=== PATIENT | female | born 1995 | race Caucasian/White ===

== ENCOUNTER 2018-06-24 20:30 | Observation (INO) | payer BC ==
--- NOTE | 2018-06-24 20:43 | EDPHY ---
H & P Stated Complaint: SENT FROM [facility] [place] ABD PAIN N,V,D, 24 HRS. RLQ PAIN Time Seen by Provider: 06/24/18 20:42 HPI/ROS: CHIEF COMPLAINT: Abdominal pain, vomiting and diarrhea HISTORY OF PRESENT ILLNESS: The patient presents the ED with a 1 day history of generalized abdominal pain, vomiting and diarrhea. The patient took Zofran earlier today without improvement. She went to urgent care received IV fluid rehydration for the past 3 hr. She continued to have ongoing abdominal pain which appear to be more localized to the right lower quadrant and was referred to the ED for further evaluation. The patient denies any history of dysuria, fever or sore throat. She denies prior history of abdominal surgery. She does have a prior history of a hip surgery. She is on levothyroxine. REVIEW OF SYSTEMS: A comprehensive 10 point review of systems is otherwise negative aside from elements mentioned in the history of present illness. Source: Patient Exam Limitations: No limitations - Personal History LMP (Females 10-55): 15-21 Days Ago Current Tetanus/Diphtheria Vaccine: Yes Current Tetanus Diphtheria and Acellular Pertussis (TDAP): Yes - Medical/Surgical History Hx Asthma: No Hx Chronic Respiratory Disease: No Hx Diabetes: No Hx Cardiac Disease: No Hx Renal Disease: No Hx Cirrhosis: No Hx Alcoholism: No Hx HIV/AIDS: No Hx Splenectomy or Spleen Trauma: No Other PMH: HIP SURGERY , CHI WITH VISION ISSUES, HYPOTHYROID - Social History Smoking Status: Never smoked - Physical Exam Exam: General Appearance: Alert, no distress Eyes: Pupils equal and round no pallor or injection ENT, Mouth: Mucous membranes moist Respiratory: There are no retractions, lungs are clear to auscultation Cardiovascular: Regular rate and rhythm Gastrointestinal: Generalized abdominal tenderness, greatest in the right lower quadrant, no peritoneal signs, normal bowel sounds Neurological: 5/5 strength all 4 extremities Skin: Warm and dry, no rashes Musculoskeletal: Neck is supple nontender Extremities: symmetrical, full range of motion Constitutional: Initial Vital Signs Temperature (C) 37.4 C 06/24/18 20:32 Heart Rate 95 06/24/18 20:32 Respiratory Rate 18 06/24/18 20:32 Blood Pressure 121/66 H 06/24/18 20:32 O2 Sat (%) 99 06/24/18 20:32 O2 Delivery Mode Room Air Allergies/Adverse Reactions: No Known Allergies Allergy (Unverified 06/24/18 20:36) Home Medications: Medication Instructions Recorded Cetirizine [ZyrTEC 10 mg (*)] 10 mg PO DAILY 06/24/18 Levothyroxine [Synthroid 25 mcg 25 mcg PO DAILY06 06/24/18 (*)] Medical Decision Making - Diagnostics Imaging Results: Imaging Impressions Abdomen CT 06/24/18 21:40 Impression: 1. Acute retrocecal appendicitis predominantly involving the tip of the appendix , where marked focal inflammatory changes suggests possible microperforation. The tip of the appendix is located directly adjacent to the inferior margin of the liver. Results called to Abdullahi Glez at 10:10 PM ED Course/Re-evaluation: The patient had an IV established. The patient was noted to have a significant leukocytosis. She has the somewhat unusual presentation with vomiting and diarrhea but fairly significant abdominal tenderness which is localized to the right mid quadrant. Given the amount of GI symptoms I did perform a CT scan of the abdomen pelvis which confirms a diagnosis of a retrocecal appendicitis. The patient received 2 g of IV cefoxitin in the ED. She received Toradol for pain management. Consultation was made with Dr. Alfaro from General surgery who will admit the patient for appendectomy this evening. I re-evaluated the patient at 10:10 p.m.. Differential Diagnosis: Differential diagnosis considered includes gastroenteritis, mesenteric adenitis , ectopic , appendicitis - Data Points Laboratory Results: Laboratory Results 06/24/18 20:58 06/24/18 20:58 06/24/18 06/24/18 06/24/18 20:58 20:58 20:58 WBC 20.24 10^3/uL H 10^3/uL (3.80-9.50) RBC 4.98 10^6/uL 10^6/uL (4.18-5.33) Hgb 13.8 g/dL g/dL (12.6-16.3) Hct 41.6 % % (38.0-47.0) MCV 83.5 fL fL (81.5-99.8) MCH 27.7 pg L pg (27.9-34.1) MCHC 33.2 g/dL g/dL (32.4-36.7) RDW 12.4 % % (11.5-15.2) Plt Count 385 10^3/uL 10^3/uL (150-400) MPV 9.3 fL fL (8.7-11.7) Neut % (Auto) 82.6 % H % (39.3-74.2) Lymph % (Auto) 9.2 % L % (15.0-45.0) [place] % (Auto) 7.6 % % (4.5-13.0) Eos % (Auto) 0.0 % L % (0.6-7.6) Baso % (Auto) 0.3 % % (0.3-1.7) Nucleat RBC Rel Count 0.0 % % (0.0-0.2) Absolute Neuts (auto) 16.72 10^3/uL H 10^3/uL (1.70-6.50) Absolute Lymphs (auto) 1.86 10^3/uL 10^3/uL (1.00-3.00) Absolute Monos (auto) 1.54 10^3/uL H 10^3/uL (0.30-0.80) Absolute Eos (auto) 0.00 10^3/uL L 10^3/uL (0.03-0.40) Absolute Basos (auto) 0.06 10^3/uL 10^3/uL (0.02-0.10) Absolute Nucleated RBC 0.00 10^3/uL 10^3/uL (0-0.01) Immature Gran % 0.3 % % (0.0-1.1) Immature Gran # 0.06 10^3/uL 10^3/uL (0.00-0.10) RBC/WBC/PLT Morphology TNP Platelet Estimate TNP Sodium 139 mEq/L mEq/L (135-145) Potassium 3.7 mEq/L mEq/L (3.3-5.0) Chloride 107 mEq/L mEq/L (97-110) Carbon Dioxide 21 mEq/l L mEq/l (22-31) Anion Gap 11 mEq/L mEq/L (6-14) BUN 4 mg/dL L mg/dL (7-23) Creatinine 0.6 mg/dL mg/dL (0.6-1.0) Estimated GFR > 60 Glucose 101 mg/dL H mg/dL (70-100) Calcium 9.4 mg/dL mg/dL (8.5-10.4) Total Bilirubin 0.8 mg/dL mg/dL (0.1-1.4) Conjugated Bilirubin 0.2 mg/dL mg/dL (0.0-0.5) Unconjugated Bilirubin 0.6 mg/dL mg/dL (0.0-1.1) AST 25 IU/L IU/L (14-46) ALT 21 IU/L IU/L (9-52) Alkaline Phosphatase 67 IU/L IU/L (38-126) Total Protein 8.0 g/dL g/dL (6.3-8.2) Albumin 4.7 g/dL g/dL (3.5-5.0) Lipase 120 IU/L IU/L (23-300) Beta HCG, Qual NEGATIVE Medications Given: Discontinued Medications Ketorolac Tromethamine (Toradol) 15 mg IVP EDNOW ONE Stop: 06/24/18 20:54 Last Admin: 06/24/18 21:09 Dose: 15 mg Departure - Departure Disposition: [facility] Inpatient Acute Clinical Impression: Acute appendicitis Condition: Good Referrals: Bela Manjarrez MD [Primary Care Provider] - As per Instructions
[2018-06-24] MEDS ORDERED: KETOROLAC 15 MG/1 ML SDV IVP ONE (20:53)
[2018-06-24 21:10] LABS: PLATELET COUNT 385 10^3/uL (150-400)
[2018-06-24] MEDS ORDERED: IOPAMIDOL (ISOVUE-300) 100 ML BTL ONE (21:47)
[2018-06-24] MEDS ORDERED: cefOXitin SODIUM 2 GM in NS 100 ML IV ONE (22:07)
--- NOTE | 2018-06-24 22:41 | PDGENHP ---
History and Physical - Chief Complaint abdominal pain - History of Present Illness otherwise healthy 23yo female who presents with abdominal pain since 0300. Awoke this AM had some vague abdominal discomfort, she thought she needed to have a BM and took some tea to help. Had BM x2, still had pain which progressed throughout the day. THis evening, began to relocate to the RLQ. She has had nausea, vomiting and diarrhea throughout the day. No fevers or chills. Pain is RLQ, sharp, worse with palpation, better with rest. History Information - Allergies/Home Medication List Allergies/Adverse Reactions: No Known Allergies Allergy (Unverified 06/24/18 20:36) Home Medications: Cetirizine [ZyrTEC 10 mg (*)] 10 mg PO DAILY 06/24/18 [Last Taken Unknown] Levothyroxine [Synthroid 25 mcg (*)] 25 mcg PO DAILY06 06/24/18 [Last Taken Unknown] I have personally reviewed and updated: family history, medical history, social history, surgical history Past Medical History: hypothyroid - Surgical History Additional surgical history: wisdom teeth removal, R hip arthorscopy - Family History Positive for: non-pertinent - Social History Smoking Status: Never smoked 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 Review of Systems Review of Systems: ROS: 10pt was reviewed & negative except for what was stated in HPI & below Physical Exam Physical Exam: Temp Pulse Resp BP Pulse Ox 37.4 C 95 18 121/66 H 99 06/24/18 20:32 06/24/18 20:32 06/24/18 20:32 06/24/18 20:32 06/24/18 20:32 Constitutional: no apparent distress, appears nourished, not in pain Eyes: PERRL, anicteric sclera, EOMI Ears, Nose, Mouth, Throat: moist mucous membranes, hearing normal, ears appear normal, no oral mucosal ulcers Cardiovascular: regular rate and rhythym, no murmur, rub, or gallop, No edema Respiratory: no respiratory distress, no rales or rhonchi, clear to auscultation Gastrointestinal: normoactive bowel sounds, other (TTP in RLQ, worse with deep palpation, no rebound ) Genitourinary: no bladder fullness, no bladder tenderness Skin: warm, normal color, no rashes or abrasions, no fluctuance, no induration, No mottled Musculoskeletal: full muscle strength, no muscle tenderness, normal joint ROM, no joint effusions Psychiatric: interacting appropriately, not anxious, not encephalopathic, thought process linear Lymph, Heme, Immunologic: no cervical LAD, no supraclavicular LAD Lab Data & Imaging Review 06/24/18 20:58 06/24/18 20:58 WBC 20.24 10^3/uL (3.80-9.50) H 06/24/18 20:58 RBC 4.98 10^6/uL (4.18-5.33) 06/24/18 20:58 Hgb 13.8 g/dL (12.6-16.3) 06/24/18 20:58 Hct 41.6 % (38.0-47.0) 06/24/18 20:58 MCV 83.5 fL (81.5-99.8) 06/24/18 20:58 MCH 27.7 pg (27.9-34.1) L 06/24/18 20:58 MCHC 33.2 g/dL (32.4-36.7) 06/24/18 20:58 RDW 12.4 % (11.5-15.2) 06/24/18 20:58 Plt Count 385 10^3/uL (150-400) 06/24/18 20:58 MPV 9.3 fL (8.7-11.7) 06/24/18 20:58 Neut % (Auto) 82.6 % (39.3-74.2) H 06/24/18 20:58 Lymph % (Auto) 9.2 % (15.0-45.0) L 06/24/18 20:58 [place] % (Auto) 7.6 % (4.5-13.0) 06/24/18 20:58 Eos % (Auto) 0.0 % (0.6-7.6) L 06/24/18 20:58 Baso % (Auto) 0.3 % (0.3-1.7) 06/24/18 20:58 Nucleat RBC Rel Count 0.0 % (0.0-0.2) 06/24/18 20:58 Absolute Neuts (auto) 16.72 10^3/uL (1.70-6.50) H 06/24/18 20:58 Absolute Lymphs (auto) 1.86 10^3/uL (1.00-3.00) 06/24/18 20:58 Absolute Monos (auto) 1.54 10^3/uL (0.30-0.80) H 06/24/18 20:58 Absolute Eos (auto) 0.00 10^3/uL (0.03-0.40) L 06/24/18 20:58 Absolute Basos (auto) 0.06 10^3/uL (0.02-0.10) 06/24/18 20:58 Absolute Nucleated RBC 0.00 10^3/uL (0-0.01) 06/24/18 20:58 Immature Gran % 0.3 % (0.0-1.1) 06/24/18 20:58 Immature Gran # 0.06 10^3/uL (0.00-0.10) 06/24/18 20:58 RBC/WBC/PLT Morphology TNP 06/24/18 20:58 Platelet Estimate TNP 06/24/18 20:58 Sodium 139 mEq/L (135-145) 06/24/18 20:58 Potassium 3.7 mEq/L (3.3-5.0) 06/24/18 20:58 Chloride 107 mEq/L (97-110) 06/24/18 20:58 Carbon Dioxide 21 mEq/l (22-31) L 06/24/18 20:58 Anion Gap 11 mEq/L (6-14) 06/24/18 20:58 BUN 4 mg/dL (7-23) L 06/24/18 20:58 Creatinine 0.6 mg/dL (0.6-1.0) 06/24/18 20:58 Estimated GFR > 60 06/24/18 20:58 Glucose 101 mg/dL (70-100) H 06/24/18 20:58 Calcium 9.4 mg/dL (8.5-10.4) 06/24/18 20:58 Total Bilirubin 0.8 mg/dL (0.1-1.4) 06/24/18 20:58 Conjugated Bilirubin 0.2 mg/dL (0.0-0.5) 06/24/18 20:58 Unconjugated Bilirubin 0.6 mg/dL (0.0-1.1) 06/24/18 20:58 AST 25 IU/L (14-46) 06/24/18 20:58 ALT 21 IU/L (9-52) 06/24/18 20:58 Alkaline Phosphatase 67 IU/L (38-126) 06/24/18 20:58 Total Protein 8.0 g/dL (6.3-8.2) 06/24/18 20:58 Albumin 4.7 g/dL (3.5-5.0) 06/24/18 20:58 Lipase 120 IU/L (23-300) 06/24/18 20:58 Beta HCG, Qual NEGATIVE 06/24/18 20:58 Visualized and Interpreted imaging results: Yes Interpretation: CT: acute appendicitis, retrocecal Assessment & Plan Assessment: Acute appendicitis (Acute) Plan: 23yo female with acute appendicitis - IV abx in [facility] ED - to OR for laparoscopic appendectomy. RBA discussed
[2018-06-24] MEDS ORDERED: BUPIVACAINE 0.25% 30 ML SDV ONE (22:46)
[2018-06-24] MEDS ORDERED: EPINEPHrine 1 MG/ML INJ ONE (22:47)
--- NOTE | 2018-06-24 23:21 | POSTANESTH ---
Post Anesthetic Evaluation Cardiovascular Status: Normal, Stable Respiratory Status: Normal, Stable Level of Consciousness/Mental Status: Can Participate in Eval, Moderately Sleepy Pain Control: Adequate, Prn Tx Ordered Nausea/Vomiting Control: Adequate, Prn Tx Ordered Complications Possibly Related to Anesthesia: None Noted
--- NOTE | 2018-06-24 23:23 | PDANEPAE ---
ANE History of Present Illness 23 yo female with acute appendicitis since Monday. 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 - Surgical History Prior Surgeries: hip surgery ANE Review of Systems Review of Systems: - Systems Gastrointestinal: Reports: vomitting, abdominal pain ANE Patient History - Allergies Allergies/Adverse Reactions: No Known Allergies Allergy (Unverified 06/24/18 20:36) - Home Medications Home Medications: Cetirizine [ZyrTEC 10 mg (*)] 10 mg PO DAILY 06/24/18 [Last Taken Unknown] Levothyroxine [Synthroid 25 mcg (*)] 25 mcg PO DAILY06 06/24/18 [Last Taken Unknown] - NPO status NPO Since - Solids (Date): 06/24/18 NPO Since - Solids (Time): 20:00 - Anes Hx Anes Hx: no prior problems - Smoking Hx Smoking Status: Never smoked - Family Anes Hx Family Anes Hx: neg - N/A ANE Labs/Vital Signs - Labs Result Diagrams: 06/24/18 20:58 06/24/18 20:58 - Vital Signs Blood Pressure: 102/58 Heart Rate: 68 Respiratory Rate: 18 O2 Sat (%): 97 Height: 165.1 cm Weight: 74.843 kg ANE Physical Exam - Airway Neck exam: FROM Mallampati Score: Class 2 Mouth exam: normal dental/mouth exam - Pulmonary Pulmonary: clear to auscultation - Cardiovascular Cardiovascular: regular rate and rhythym - ASA Status ASA Status: II, E ANE Anesthesia Plan Anesthesia Plan: general endotracheal anesthesia
[2018-06-24] MEDS ORDERED: LIDOCAINE 2% 2 ML INJ ONE (23:25)
[2018-06-24] MEDS ORDERED: ROCURONIUM 50 MG/5 ML VIAL ONE (23:25)
[2018-06-24] MEDS ORDERED: ONDANSETRON 4 MG/2 ML VIAL ONE (23:25)
[2018-06-24] MEDS ORDERED: fentaNYL 100 MCG/2 ML INJ ONE ×2 (23:25)
[2018-06-24] MEDS ORDERED: PROPOFOL 200 MG/20 ML VIAL ONE (23:25)
[2018-06-24] MEDS ORDERED: SUCCINYLCHOLINE CHLORIDE 200 MG/10 ML SYR IVP ONE (23:25)
[2018-06-24] MEDS ORDERED: DEXAMETHASONE 4 MG/ML VIAL ONE (23:25)
[2018-06-25] MEDS ORDERED: PROMETHAZINE HCL 25 MG/ML INJ IVP PRN (00:09)
[2018-06-25] MEDS ORDERED: NALOXONE HCL 0.4 MG/ML INJ IVP PRN (00:09)
[2018-06-25] MEDS ORDERED: fentaNYL 100 MCG/2 ML INJ IVP PRN (00:09)
[2018-06-25] MEDS ORDERED: LR 500 ML IV PRN (00:09)
[2018-06-25] MEDS ORDERED: ACETAMINOPHEN 500 MG TAB PO PRN (00:09)
[2018-06-25] MEDS ORDERED: ALBUTEROL 3 ML DEYVIAL IH PRN (00:09)
[2018-06-25] MEDS ORDERED: ACETAMINOPHEN 325 MG TAB PO PRN (00:47)
[2018-06-25] MEDS ORDERED: ONDANSETRON 4 MG/2 ML VIAL IVP PRN (00:47)
[2018-06-25] MEDS ORDERED: HYDROCODONE/APAP 5/325 TAB PO PRN (00:47)
[2018-06-25] MEDS ORDERED: HYDROmorphONE/DILAUDID 1 MG/ML INJ IVP PRN (00:47)
--- NOTE | 2018-06-25 00:47 | POSTOPPROG ---
Post Op Note Date of Operation: 06/25/18 Surgeon: Greg Alfaro Anesthesiologist: Rosaura Anesthesia: GET(General Endotracheal) Pre-op Diagnosis: Appendicitis Post-op Diagnosis: same Procedure: Laparoscopic appendectomy Findings: acute, indurated Inf/Abcess present in the surg proc area at time of surgery?: No EBL: Minimal Specimen(s): appendix
[2018-06-25] MEDS ORDERED: D5W 1/2 NS W/ 20 KCl/L 1,000 ML IV SCH (01:00)
[2018-06-25] MEDS ORDERED: IBUPROFEN 600 MG TAB PO SCH (06:00)
--- NOTE | 2018-06-25 07:37 | GOP ---
DATE OF OPERATION: 06/25/2018 SURGEON: Greg Alfaro MD [employer] SALES REPRESENTATIVE: None. ANESTHESIA: General endotracheal. ANESTHESIOLOGIST: Terrie Benoit MD PREOPERATIVE DIAGNOSIS: Acute appendicitis. POSTOPERATIVE DIAGNOSIS: Acute appendicitis. PROCEDURE PERFORMED: Laparoscopic appendectomy, primary repair of umbilical hernia FINDINGS: Acute indurated retrocecal appendix. No other significant findings. Small umbilical hernia containing pre-peritoneal fat, reduced and closed SPECIMENS: Appendix. ESTIMATED BLOOD LOSS: 5 cc. DESCRIPTION OF PROCEDURE: The patient was greeted in the preoperative suite. Consent was signed. She was then brought back to the operative suite and placed on the OR table. After successful induction of general anesthesia, the patient's abdomen was prepped and draped in typical sterile fashion. The patient did have a small little umbilical hernia. I made a curvilinear incision inferior to the umbilicus, carried it down, identified what appeared to be a hernia sac containing preperitoneal fat. I skeletonized this. Through the defect, I inserted my Veress needle. I achieved pneumoperitoneum to 15 mmHg , which was well tolerated by the patient. Through this, I then inserted my 12 mm trocar. Once successfully in the abdomen, I placed 2 additional 5 mm trocars , one in the suprapubic, one in the left lower quadrant, both under direct visualization. I identified the appendix by tracing the taeniae inferiorly. The appendix was quite long and retrocecal, stuck to the retroperitoneum. I successfully amputated the appendix from the cecal base using a single fire of the Endo PAIGE blue load stapler and then successfully took the mesoappendix as well as the retroperitoneal attachments with the Harmonic Scalpel. Once it was skeletonized, it was placed in an EndoCatch bag and removed I inspected my staple line and mesoappendix which were clean, dry, and hemostatic. I then irrigated the right lower quadrant and pelvis with 1 L of sterile saline noting clear effluent in the suction canister. My ports were then removed and I evacuated the pneumoperitoneum. The umbilical defect which was previously opened was then closed with 0 Vicryl stitch noting excellent fascial reapproximation. The skin was closed with Monocryl over which Dermabond was placed. The patient was then extubated in the operative suite and taken to the PACU in satisfactory condition. DRAINS: None. COUNTS: All counts were reported as correct x2. /[id number]/MODL MTDD
[2018-06-25 09:34] VITALS: BP 98/61
--- NOTE | 2018-06-25 10:28 | ASMTCMCOM ---
CM Note CM Note Notes: Chart reviewed for discharge planning purposes. Patient is a generally healthy 23 year old female s/p laparascopic appendectomy. No needs identified at this time. CM available should needs arise. Plan: Likely to dc independent when medically cleared for discharge. Date Signed: 06/25/2018 10:28 AM Electronically Signed By:Belinda Medina RN
--- NOTE | 2018-06-25 12:24 | ASMTLACE ---
LACE Length of stay for Answers: Less than 1 day current admission Comorbidities - select Answers: Other Notes: Hypothyroid; Hx of TBI all that apply # of Emergency department Answers: 1-2 visits in the last 6 months Score: 2 Date Signed: 06/25/2018 12:24 PM Electronically Signed By:Belinda Medina RN
--- NOTE | 2018-06-25 12:26 | ASMTCMCOM ---
CM Note CM Note Notes: Medically cleared by surgery for dc. No needs, CM available should needs arise. Plan: Home independent. Date Signed: 06/25/2018 12:26 PM Electronically Signed By:Belinda Medina RN
--- NOTE | 2018-06-25 12:32 | PDDCSUM ---
Discharge Summary Discharge Summary: DISCHARGE SUMMARY Date of Admission June 24 Date of Discharge June 25 DISCHARGE DIAGNOSES -acute appendicitis HOSPITAL COURSE The patient was admitted from the ED and taken to the operating room where they underwent an uneventful laparoscopic appendectomy. They were subsequently taken to the PACU and then the general medical floor. The hospital course was uneventful, their diet was advanced to a regular diet which was well tolerated and their pain was well controlled. They were discharged home in stable condition on the afternoon of the DISCHARGE MEDICATIONS [place] as needed for pain DISPOSITION Home FOLLOW UP Follow up with me in the office in 10-14 days for a general post-operative visit
== END 2018-06-25 12:28 | disposition home or self-care (01) ==
LOC: F1N 06-25 01:03
PROVIDERS: ADMIT Surgery; ATTEND Surgery
PROC: 0DTJ4ZZ Resection of Appendix, Percutaneous Endoscopic Approach (ICD-10-PCS; principal; 2018-06-24 23:00)
DX: K35.80 Unspecified acute appendicitis (principal); K42.9 Umbilical hernia without obstruction or gangrene
CPT/HCPCS: 44970; 74177; G0378; J0171; J0330; J0694; J1100; J1885; J2405; J2704; J3010; Q9967

== ENCOUNTER → 2018-09-28 | Outpatient (CLI) | payer BC | LOC: FIMAGING 07:27 | PROVIDERS: ATTEND Obstetrics & Gynecology | DX: N93.9 Abnormal uterine and vaginal bleeding, unspecified (principal); N83.201 Unspecified ovarian cyst, right side ==